=== PATIENT | male | born 2005 | race Caucasian/White ===

== ENCOUNTER 2024-01-12 18:12 | Emergency (ER) | payer BC, SELFPAY ==
[2024-01-12 18:19] VITALS: BP 108/66; PULSE 70; TEMP 36.7; O2SAT 98; BMI 22.4
--- NOTE | 2024-01-12 18:37 | ED.WOUNDLAC1 ---
HPI - Wound/Laceration General Chief Complaint: Wound/Laceration Stated Complaint: laceraction Time Seen by Provider: 01/12/24 18:14 Source: patient and family Mode of arrival: walk-in Limitations: no limitations History of Present Illness HPI narrative: Patient is a 18-year-old male brought to the emergency department by his parents for evaluation of a superficial laceration to the right lateral leg. Patient states at 9 AM today, he was on a ladder changing a light bulb when he accidentally cut the outside of his lower leg. Tetanus is up-to-date. Bleeding is well-controlled. Mother states she wanted the patient evaluated because he is supposed to go to [facility] on Wednesday and she was concerned about [place] developing [place] infection [place]. Related Data Home Medications ?Medication ?Instructions ?Recorded ?Confirmed No Known Home Medications 01/12/24 01/12/24 Allergies Allergy/AdvReac Type Severity Reaction Status Date / Time No Known Drug Allergies Allergy Verified 01/12/24 18:19 Review of Systems ROS Constitutional Denies: fever or chills Ears, nose, mouth, and throat Denies: throat pain Cardiovascular Denies: chest pain Respiratory Denies: shortness of breath Gastrointestinal Denies: nausea or vomiting Musculoskeletal Denies: back pain, neck pain or extremity pain Integumentary/Breast Denies: rash Hematologic/Lymphatic Denies: easy bruising or easy bleeding Exam Narrative Exam Narrative: Gen.: Awake, alert, in no distress Head: Normocephalic, atraumatic ENT: Moist mucous membranes Respiratory: No respiratory distress Extremities: Moves extremities equally, 3 cm superficial laceration to the right lateral calf. No deep laceration noted, no active bleeding. Psych: Normal mood and affect Neuro: No focal neuro deficit Skin: Warm, dry, intact Constitutional Vital Signs, click to edit/add: Last Vital Signs Temp 98.0 F 01/12/24 18:19 Pulse 70 01/12/24 18:19 Resp 18 01/12/24 18:19 BP 108/66 01/12/24 18:19 Pulse Ox 98 01/12/24 18:19 O2 Del Method Room Air 01/12/24 18:19 Course Vital Signs Vital signs: Vital Signs Temperature 98.0 F 01/12/24 18:19 Pulse Rate 70 01/12/24 18:19 Respiratory Rate 18 01/12/24 18:19 Blood Pressure 108/66 01/12/24 18:19 Pulse Oximetry 98 01/12/24 18:19 Oxygen Delivery Method Room Air 01/12/24 18:19 Temperature 98.0 F 01/12/24 18:19 Pulse Rate 70 01/12/24 18:19 Respiratory Rate 18 01/12/24 18:19 Blood Pressure 108/66 01/12/24 18:19 Pulse Oximetry 98 01/12/24 18:19 Oxygen Delivery Method Room Air 01/12/24 18:19 MDM - Wound/Laceration MDM Narrative Medical decision making narrative: Wound was explored, no evidence of foreign body. Cleansed and dressed with bacitracin and Telfa. Patient is neurovascularly intact. Laceration is superficial and does not require sutures at this time. Wound care instructions provided for home. Follow-up PCP and return to the ER if symptoms change or worsen SUPERVISED APC VISIT, PHYSICIAN ATTESTATION: Based on the medical record the care appears appropriate. ? Discharge Plan Discharge Stand Alone Forms: Portal Instructions Chief Complaint: Wound/Laceration Clinical Impression: Laceration of right lower leg Patient Disposition: Home, Self-Care Time of Disposition Decision: 18:37 Condition: Good Prescriptions / Home Meds: No Action No Known Home Medications Print Language: Bel[place]ian Instructions: Laceration (ED) Referrals: YULI MORRISON [Primary Care Provider] - 1 week
[2024-01-12] MEDS: BACITRACIN 0.9 GM PACKET 1 PACKET TOPICAL (18:39)
[2024-01-12 18:45] VITALS: BP 108/66; PULSE 68; O2SAT 98
== END 2024-01-12 18:46 | disposition home or self-care (01) ==
PROVIDERS: Emergency Provider Emergency Medicine; PCP Family Medicine
DX: S81.811A Laceration without foreign body, right lower leg, initial encounter (principal); W45.8XXA Other foreign body or object entering through skin, initial encounter
CPT/HCPCS: 99282